=== PATIENT | female | born 1940 | race Caucasian/White ===

== ENCOUNTER → 2018-07-04 15:49 | Outpatient (CLI) | payer MEDICARE, SELFPAY | PROVIDERS: Referring Provider Nurse Practitioner Adult Health; Visit Provider Nurse Practitioner Adult Health | DX: R30.0 Dysuria (principal) | CPT/HCPCS: 87086; 87088; 87186 ==

== ENCOUNTER 2019-04-21 09:09 | Outpatient (RCR) | payer SELFPAY | END 2019-05-01 23:59 | LOC: NS 09:09 | DX: Z93.1 Gastrostomy status (principal); Z71.3 Dietary counseling and surveillance | CPT/HCPCS: 97802 ==